=== PATIENT | female | born 1990 | race Caucasian/White ===

== ENCOUNTER 2020-05-30 18:04 | Emergency (ER) | payer MEDICARE, SELFPAY ==
[2020-05-30 18:15] VITALS: BP 134/75; PULSE 103; RESP 14; TEMP 37.3; O2SAT 99
--- NOTE | 2020-05-30 19:06 | ED.GENADULT ---
HPI - General Adult General Chief complaint: Upper Respiratory Infection Stated complaint: sore throat Time Seen by Provider: 05/30/20 19:06 Source: patient and RN notes reviewed Mode of arrival: ambulatory Limitations: no limitations History of Present Illness HPI narrative: 30-year-old female presents with complaints of dry cough and sore throat for 1 day. No treatment. Diamond says she started having symptoms today at work once she found out a co-worker was diagnosis with Strep throat. No high fevers, drooling, neck or throat swelling. Pain is bilateral. Hurts to swallow. Exacerbation factors consist dry coughing. No rhinorrhea or nasal congestion. No voice change. No nausea, vomiting, or abdominal pain. Tolerating liquids well. Denies chills, dyspnea, difficulty swallowing, jaw pain, dental pain, facial pain, foreign body sensation, and rash. LMP, unknow on Depo-Provera for years per Diamond. Remains active. The patient reports she have not been diagnosed with COVID-19. The patient reports she is not waiting for the results of a COVID-19 lab test. The patient reports she do not have fever, chills, weakness, fatigue, myalgia, or facial swelling. The patient reports she do not have a new or worsening cough or shortness of breath. Denies chest pain. The patient reports she do not have any rhinorrhea, congestion, and diarrhea. Denies recent traveling. Denies concerns for COVID-19 or exposures been home with limited outdoor exposure except for essential household needs, work, and return home. At this time, patient is not suspected of having COVID-19. Some parts of this dictation were generated by voice recognition software and may contain typographical and/or grammatical inaccuracies. Related Data Home Medications Medication Instructions Recorded Confirmed fluoxetine 80 mg PO DAILY 05/30/20 05/30/20 lamotrigine 25 mg PO DAILY 05/30/20 05/30/20 lithium carbonate 450 mg PO BID 05/30/20 05/30/20 lurasidone [Latuda] 40 mg PO DAILY 05/30/20 05/30/20 medroxyprogesterone 150 mg IM [id number] 05/30/20 05/30/20 naltrexone 50 mg PO DAILY 05/30/20 05/30/20 Allergies Allergy/AdvReac Type Severity Reaction Status Date / Time No Known Allergies Allergy Verified 05/30/20 18:26 Review of Systems Review of Systems: Narrative: CONSTITUTIONAL: Denies fever, chills, sweats. EYES: Denies visual changes, redness, discharge. ENT: Denies rhinorrhea, otalgia, congestion. Complains of sore throat. CARDIOVASCULAR: Denies chest pain, palpitations, edema. RESPIRATORY: Denies dyspnea, wheezing. Complains of dry cough. GASTROINTESTINAL: Denies abdominal pain, nausea, vomiting, diarrhea. GENITOURINARY: Denies dysuria, hematuria, abnormal discharge. SKIN: Denies rash or itching. MUSCULOSKELETAL: Denies acute back pain, joint pain, or myalgia. NEUROLOGIC: Denies numbness or focal weakness. PSYCHIATRIC: Denies anxiety or depression. All systems reviewed & are unremarkable except as noted in HPI and below. [facility] Past Medical History Medical History (Updated 05/31/20 @ 00:00 by Ginny Daemon) Anxiety Borderline personality disorder Depression Tourette syndrome Wrist fracture, left X3 Surgical History Surgical History (Updated 05/30/20 @ 19:11 by EDMOND Bishop) History of cholecystectomy Family History Family History (Updated 05/30/20 @ 19:33 by EDMOND Bishop) Father Heart disease Mother Seizures Other Diabetes mellitus Family history of malignant neoplasm Social History Social History (Updated 05/30/20 @ 19:32 by EDMOND Bishop) Smoking status: Never smoker Second hand tobacco smoke exposure: No Alcohol intake: current Substance use: never Gender identity (if verbalized by the patient): Female Comments At time of signature, agree with nurse past medical, surgical, social, and family history. There is no relevant family history pertinent to the presenting complaint.
== END 2020-05-30 19:32 | disposition home or self-care (01) ==
PROVIDERS: Emergency Provider Nurse Practitioner Family
DX: J02.9 Acute pharyngitis, unspecified (principal); F95.2 Tourette's disorder; F32.9 Major depressive disorder, single episode, unspecified; F41.9 Anxiety disorder, unspecified
CPT/HCPCS: 87081; 87804; 87880; 99213; G0463

== ENCOUNTER 2020-09-19 18:20 | Emergency (ER) | payer MEDICARE, SELFPAY ==
[2020-09-19 18:27] VITALS: BP 134/93; PULSE 104; RESP 16; TEMP 36.4; O2SAT 100
--- NOTE | 2020-09-19 18:31 | ED.URI ---
HPI - URI/Sore Throat General Chief Complaint: Upper Respiratory Infection Stated Complaint: strep test Time Seen by Provider: 09/19/20 18:31 Source: patient and RN notes reviewed History of Present Illness HPI Narrative: Patient is a 30-year-old female who presents the urgent care with complaints of a sore throat that started today. Patient states that she was at work and the sore throat progressed. States that she had a temperature of 99 Fahrenheit. Denies of any nausea, vomiting, abdominal pain, headache. Denies of any known exposure to strep or flu. 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 Patient has not used any meds [id number] for her symptoms. No other acute complaints. No acute distress noted. Patient aware of the plan of care. Some parts of this dictation were generated by voice recognition software and may contain typographical and/or grammatical inaccuracies. Related Data Home Medications Medication Instructions Recorded Confirmed fluoxetine 80 mg PO DAILY 05/30/20 05/30/20 lamotrigine 25 mg PO DAILY 05/30/20 05/30/20 lithium carbonate 450 mg PO BID 05/30/20 05/30/20 lurasidone [Latuda] 40 mg PO DAILY 05/30/20 05/30/20 medroxyprogesterone 150 mg IM [id number] 05/30/20 05/30/20 naltrexone 50 mg PO DAILY 05/30/20 05/30/20 Allergies Allergy/AdvReac Type Severity Reaction Status Date / Time No Known Allergies Allergy Verified 09/19/20 18:39 Review of Systems Review of Systems: Narrative: CONSTITUTIONAL: Denies fever, chills, or sweats. EYES: Denies visual changes, redness, or discharge. ENT: Reports of sore throat and slight rhinorrhea CARDIOVASCULAR: Denies chest pain, palpitations, or edema. RESPIRATORY: Denies cough or dyspnea. GASTROINTESTINAL: Denies abdominal pain, nausea, vomiting, or diarrhea. GENITOURINARY: Denies dysuria or hematuria. SKIN: Denies rash or itching. MUSCULOSKELETAL: Denies back pain, joint pain, or myalgia. NEUROLOGIC: Denies headache, numbness, or weakness. All other systems reviewed are negative, except as documented in HPI. [facility] Past Medical History Medical History (Updated 09/19/20 @ 18:47 by EDMOND Calle) Anxiety Borderline personality disorder Depression Tourette syndrome Wrist fracture, left X3 Surgical History Surgical History (Updated 05/30/20 @ 19:11 by EDMOND Bishop) History of cholecystectomy Family History Family History (Updated 05/30/20 @ 19:33 by EDMOND Bishop) Father Heart disease Mother Seizures Other Diabetes mellitus Family history of malignant neoplasm Social History Social History (Updated 05/30/20 @ 19:32 by EDMOND Bishop) Smoking status: Never smoker Second hand tobacco smoke exposure: No Alcohol intake: current Substance use: never Gender identity (if verbalized by the patient): Female Comments At the time of my signature, I reviewed and agree with the nursing past medical, surgical, social, and family history. There is no relevant family history pertinent to the patient complaint. Exam Narrative: Exam Narrative: GENERAL: This is a well-nourished, well-developed patient, in no apparent distress. HEAD: normocephalic, atraumatic. EYES: PERRL. Sclera clear/white. Vision is grossly intact. EARS: External ears normal, auditory canals clear and without drainage, TMs normal without perforation. Hearing grossly intact. NOSE: External nose normal with no obvious nasal discharge, nares without redness, no rhinorrhea. THROAT: Mucous membranes moist, moderate erythema noted to posterior oropharynx without exudate or ulceration. NECK: Neck supple CARDIOVASCULAR: Regular rate and rhythm without murmurs, gallops, or rubs. RESPIRATORY: Clear to auscultation. Breath sounds equal bilaterally. No wheezes, rales, or rhonchi. SKIN: warm, intact with no suspicious lesions or rash, good texture and turgor. NEURO: awake, alert,
== END 2020-09-19 18:50 | disposition home or self-care (01) ==
PROVIDERS: Emergency Provider Nurse Practitioner Family
DX: J02.9 Acute pharyngitis, unspecified (principal); F95.2 Tourette's disorder; F41.9 Anxiety disorder, unspecified; F32.9 Major depressive disorder, single episode, unspecified
CPT/HCPCS: 87081; 87880; 99213; G0463

== ENCOUNTER 2022-09-22 12:37 | Outpatient (CLI) | payer MEDICARE, MEDICAID, SELFPAY ==
--- NOTE | ~2022-09-22 | US_ITS ---
EXAMINATION: US OB <=14 wk fetus w TV DATE: 09/22/2022 13:53 INDICATION: Assess viability and dating of during first trimester. TECHNIQUE: Real-time pelvic ultrasound utilizing both a transvaginal and transabdominal probe was pe rformed. The interpreting radiologist was not present for the study. COMPARISON: None. FINDINGS: The uterus measures 7.4 x 6.0 x 4.6 cm. There is an intrauterine gestational sac. There is a yolk sa c but no definitive pole. The mean sac diameter measures 2.0 cm, which correlates with an estim ated gestational age of 6 weeks and 6 days. The right ovary measures 3.6 x 2.6 x 2.3 cm. 1.1 cm anechoic likely corpus luteum cyst in the right ovary. The left ovary measures 2.9 x 1.9 x 1.7 cm. Vascular flow with arterial waveforms identified i n both the left and right ovaries. There is no free fluid in the pelvis. IMPRESSION: 1. Single intrauterine gestational sac with yolk sac but no definitive pole yet apparent. The a bsence of a definitive pole at a mean sac diameter of 2.0 cm raises some concern for but is not diagnostic of failed . 2. Gestational age by ultrasound based upon mean sac diameter of 6 weeks 6 day(s) +/- 4 day(s) with ultrasound estimated date of delivery (DEUCE) of 05/12/2023. Reviewed, dictated and finalized at location A. AL CONSTRUCTOR IMPRESSION: 1. Single intrauterine gestational sac with yolk sac but no definitive po le yet apparent. The absence of a definitive pole at a mean sac diameter of 2.0 cm raises some concern for but is not diagnostic of failed . 2. Gestational age by ultrasound based upon mean sac diameter of 6 weeks 6 day (s) +/- 4 day(s) with ultrasound estimated date of delivery (DEUCE) of 05/12/2023.
== END 2022-09-22 12:38 | disposition home or self-care (01) ==
PROVIDERS: Visit Provider Obstetrics & Gynecology Gynecology
DX: O36.80X0 Pregnancy with inconclusive fetal viability, not applicable or unspecified (principal); Z3A.01 Less than 8 weeks gestation of pregnancy
CPT/HCPCS: 76801; 76817

== ENCOUNTER 2022-09-24 10:04 | Outpatient (CLI) | payer MEDICARE, MEDICAID, SELFPAY | END 2022-09-24 10:05 | disposition home or self-care (01) | LOC: ANHLAB 10:05 | PROVIDERS: Visit Provider Obstetrics & Gynecology Gynecology | DX: O26.859 Spotting complicating pregnancy, unspecified trimester (principal); Z3A.00 Weeks of gestation of pregnancy not specified | CPT/HCPCS: 36415; 84702 ==

== ENCOUNTER 2022-10-06 16:23 | Emergency (ER) | payer MEDICARE, MEDICAID, SELFPAY ==
[2022-10-06 16:21] VITALS: BP 128/82; PULSE 107; RESP 30; TEMP 36.6; O2SAT 100
--- NOTE | 2022-10-06 16:30 | ECG_ITS ---
Measurements Intervals [place] Rate: 95 P: 30 AR: 148 QRS: 55 QRSD: 88 T: 9 QT: 364 QTc: 460 Interpretive Statements SINUS RHYTHM NONSPECIFIC ST AND T-WAVE ABNORMALITY NO PREVIOUS ECG AVAILABLE FOR COMPARISON Electronically Signed On 10-07-2022 15:18:55 PROFILE SAW OPERATOR by Loc Patiño M.D.
[2022-10-06 16:31] VITALS: PULSE 98
[2022-10-06 16:40] LABS: Appearance Urine Clear (Clear); Bilirubin Urine Negative (Negative); Blood Urine Negative (Negative); Color Urine Yellow (Yellow); Glucose Urine UA Negative (Negative); Ketones Urine Negative (Negative); Leukocyte Esterase Ur Negative LEU/UL (Negative); Nitrate Urine Negative (Negative); Protein Urine Negative (Negative); Urobilinogen Urine 0.2 mg/dL (<2.0); pH Urine 6.5 (5.0-9.0)
[2022-10-06 16:46] LABS: RBC Urine 0-2 /hpf (0-2); Squamous Epithelial Cell Urine Few /hpf (Few); WBC Urine 0-3 /hpf
[2022-10-06 16:47] LABS: Basophils Percent Auto 0.1 % (0.2-1.2); Eosinophils Absolute Auto 0.1 K/mm3 (0-0.3); Eosinophils Percent Auto 0.6 % (0-4.4); Hematocrit 38.4 % (37.0-47.0); Hemoglobin 12.4 g/dL (12.0-15.0); Immature Granulocyte Absolute 0.03 K/mm3 (0.00-0.031); Immature Granulocyte Percent A 0.4 % (0-0.5); Lymphocytes Absolute Auto 1.46 K/mm3 (0.9-3.2); Lymphocytes Percent Auto 17.1 % (18.3-44.2); Mean Corpuscular HGB Conc 32.3 g/dl (32-36); Mean Corpuscular Hemoglobin 29.4 pg (26-34); Mean Platelet Volume 8.5 fl (7.4-10.4); Monocytes Absolute Auto 0.4 K/mm3 (0.1-0.6); Neutrophils Absolute Auto 6.6 K/mm3 (1.3-6.7); Neutrophils Percent Auto 76.8 % (45.5-73.1); Platelet Count Result 281 k/mm3 (150-375); Red Blood Count 4.22 M/mm3 (4.2-5.4); Red Cell Distribution Width 12.6 % (11.5-14.5); White Blood Count 8.5 K/mm3 (4.5-10.0)
[2022-10-06 16:48] LABS: Add Urine Microscopic? NO
[2022-10-06 16:58] LABS: Alanine Aminotransferase 24 U/L (6-35); Albumin Level 3.9 g/dL (3.5-5.1); Alkaline Phosphatase 50 U/L (38-126); Anion Gap 9 mmol/L (8-16); Aspartate Amino Transferase 24 U/L (14-36); Bilirubin,Total 0.6 mg/dL (0.2-1.3); Blood Urea Nitrogen 7 mg/dL (7-17); Calcium 8.9 mg/dL (8.4-10.2); Carbon Dioxide 20 mmol/L (22-30); Chloride 107 mmol/L (98-107); Estimated CRCL calculation 128 ml/min; Estimated Glomerular Filt Rate > 60; Glucose 93 mg/dL (65-110); Potassium 3.6 mmol/L (3.4-5.0); Sodium 136 mmol/L (137-145)
[2022-10-06 17:19] VITALS: BP 146/95; PULSE 114; RESP 24; O2SAT 97
--- NOTE | 2022-10-06 17:26 | ED.SEIZURE ---
HPI - Seizure General Chief Complaint: Seizure Stated Complaint: SEIZURE Time Seen by Provider: 10/06/22 17:19 History of Present Illness HPI Narrative: Pt went to break room at [facility] to take a brief nap and woke up in an ambulance and patient does not remember what happened. Pt has history of pseudoseizures being treated by psychiatrist at [facility]. Pt also on lithium for manic depression which has been well controlled until she became and had dosage reduced. Pt says she has been under a lot of stress and this precipitates the pseudoseizures. Related Data Home Medications Medication Instructions Recorded Confirmed fluoxetine 40 mg capsule 80 mg PO DAILY 05/30/20 09/19/20 lamotrigine 25 mg tablet 25 mg PO DAILY 05/30/20 09/19/20 lithium carbonate 450 mg 450 mg PO BID 05/30/20 09/19/20 tablet,extended release lurasidone 40 mg tablet (Latuda) 40 mg PO DAILY 05/30/20 09/19/20 medroxyprogesterone 150 mg/mL 150 mg IM [id number] 05/30/20 09/19/20 intramuscular syringe naltrexone 50 mg tablet 50 mg PO DAILY 05/30/20 09/19/20 Allergies Allergy/AdvReac Type Severity Reaction Status Date / Time No Known Allergies Allergy Verified 10/06/22 16:30 Review of Systems Review of Systems: All systems reviewed & are unremarkable except as noted in HPI and below PMFSH Past Medical History Medical History (Updated 10/06/22 @ 17:36 by Selena Paul III, DO) Anxiety Borderline personality disorder Depression Tourette syndrome Wrist fracture, left X3 Surgical History Surgical History (Updated 05/30/20 @ 19:11 by EDMOND Bishop) History of cholecystectomy Family History Family History (Updated 05/30/20 @ 19:33 by EDMOND Bishop) Father Heart disease Mother Seizures Other Diabetes mellitus Family history of malignant neoplasm Social History Social History (Updated 05/30/20 @ 19:32 by EDMOND Bishop) Smoking status: Never smoker Second hand tobacco smoke exposure: No Alcohol intake: current Substance use: never Gender identity (if verbalized by the patient): Female Exam Const: General: healthy appearing Nutritional Appearance: well nourished Orientation/consciousness: patient oriented x3 Limitations: no limitations HENMT: Head: normal to inspection Throat: posterior oropharynx normal Eyes: Conjunctivae: conjunctivae normal EOM: EOMs intact bilaterally Neck: Neck: normal visual inspection Chest: Chest palpation & inspection: normal inspection of the chest Resp: Effort & Inspection: normal respiratory effort Auscultation: clear to auscultation bilaterally Cardio: Rate: regular rate Rhythm: regular rhythm GI: Auscultation: normal bowel sounds Skin: General skin exam: normal color Rashes: no rashes Neuro: General: patient oriented x3, moves all extremities, no meningeal signs, no focal motor deficits and CN's II-XI intact bilaterally Cranial nerves: Yes Nystagmus not present Speech: normal speech Extrem: General: normal to inspection and no clubbing, cyanosis or edema Psych: Appearance: grossly normal Mental Status: mental status grossly normal Affect: normal affect Attitude: cooperative Course Vital Signs Vital signs: Vital Signs Temperature 97.8 F 10/06/22 16:21 Pulse Rate 107 H 10/06/22 16:21 Respiratory Rate 30 H 10/06/22 16:21 Blood Pressure 128/82 10/06/22 16:21 Pulse Oximetry 100 10/06/22 16:21 Oxygen Delivery Room Air 10/06/22 16:21 Temperature 97.8 F 10/06/22 16:21 Pulse Rate 114 H 10/06/22 17:19 Respiratory Rate 24 H 10/06/22 17:19 Blood Pressure 146/95 H 10/06/22 17:19 Pulse Oximetry 97 10/06/22 17:19 Oxygen Delivery Room Air 10/06/22 16:21 MDM - Seizure Lab Data Attestation: I reviewed the patient's lab results. 10/06/22 16:42 10/06/22 16:42 Labs: Lab Results 10/06/22 10/06/22 10/06/22 Range/Units 16:34 16:42 16:42 WBC 8.5
[2022-10-06 17:39] VITALS: BP 116/76; PULSE 87; RESP 22; O2SAT 100
== END 2022-10-06 17:55 | disposition home or self-care (01) ==
PROVIDERS: Emergency Medicine; Emergency Provider Emergency Medicine
DX: R56.9 Unspecified convulsions (principal); F41.9 Anxiety disorder, unspecified; F31.9 Bipolar disorder, unspecified; F60.3 Borderline personality disorder; F95.2 Tourette's disorder; R94.31 Abnormal electrocardiogram [ECG] [EKG]
CPT/HCPCS: 36415; 80053; 81003; 85025; 93005; 99283

== ENCOUNTER 2022-10-20 13:55 | Outpatient (CLI) | payer MEDICARE, MEDICAID, SELFPAY ==
--- NOTE | ~2022-10-20 | US_ITS ---
Pelvic ultrasound. Clinical History: First trimester , uncertain dates Technique: Realtime transabdominal scanning of the pelvis was performed. Findings: The uterus is anteverted, and contains an intrauterine gestation. [place]-rump length of 3 cm corresponds to an estimated gestational age of 9 weeks 6 days. heart rate is 159 bpm. Neither ovary visualized. No adnexal mass seen. There is no evidence of free fluid in the cul de sac. Impression: Live intrauterine gestation with estimated gestational age of 9 weeks 6 days. heart rate is 159 bpm. Reviewed, dictated and finalized at location M. T SUPERVISOR Impression: Live intrauterine gestation with estimated gestational age of 9 weeks 6 days. F etal heart rate is 159 bpm.
== END 2022-10-20 13:56 | disposition home or self-care (01) ==
PROVIDERS: Visit Provider Obstetrics & Gynecology Gynecology
DX: Z36.87 Encounter for antenatal screening for uncertain dates (principal); Z3A.09 9 weeks gestation of pregnancy
CPT/HCPCS: 76801

== ENCOUNTER 2024-02-21 01:07 | Emergency (ER) | payer OTHER, BC, SELFPAY ==
[2024-02-21 01:03] VITALS: BP 120/71; PULSE 115; RESP 20; O2SAT 100
[2024-02-21 01:12] VITALS: O2SAT 99
--- NOTE | 2024-02-21 01:14 | ECG_ITS ---
SEE SCANNED COPY FOR CONFIRMED REPORT MTDD
--- NOTE | 2024-02-21 01:18 | ED.GENADULT ---
HPI - General Adult General Chief complaint: Seizure Stated complaint: seizure Source: patient Mode of arrival: ambulatory Limitations: no limitations History of Present Illness HPI narrative: This is a 33-year-old female with PMH of borderline personality disorder, anxiety, pseudoseizures who presents to the ED via EMS for chief complaint of seizure-like activity just prior to arrival. Patient reports that she has been on a women's retreat and was staying at a hotel. Reports that she had to climb 4 sets of stairs to get back up to the room. Reports she took a shower and then lay down because she was feeling very fatigued. After that she is not sure what happened. States that she came to in the EMS rig EN route to the ED. patient is currently A&O x4 and reports her only current complaint is fatigue/being tired. She does note that this is happened in the past and has been told she has had pseudoseizures. No formal history of epilepsy. States she has appointment with neurology in April. Denies fever, chills, neck pain, chest pain, shortness of breath, abdominal pain, nausea, vomiting, numbness, weakness. Reports she is on 5 different psych meds and is taking lithium for borderline personality disorder. Related Data Home Medications Medication Instructions Recorded Confirmed fluoxetine 40 mg capsule 80 mg PO DAILY 05/30/20 09/19/20 lamotrigine 25 mg tablet 25 mg PO DAILY 05/30/20 09/19/20 lithium carbonate 450 mg 450 mg PO BID 05/30/20 09/19/20 tablet,extended release lurasidone 40 mg tablet (Latuda) 40 mg PO DAILY 05/30/20 09/19/20 medroxyprogesterone 150 mg/mL 150 mg IM [id number] 05/30/20 09/19/20 intramuscular syringe naltrexone 50 mg tablet 50 mg PO DAILY 05/30/20 09/19/20 Allergies Allergy/AdvReac Type Severity Reaction Status Date / Time No Known Allergies Allergy Verified 02/21/24 01:20 Review of Systems Review of Systems: All systems as dictated in HPI [facility] Past Medical History Medical History (Updated 02/21/24 @ 02:00 by Obie Tello PA-C) Anxiety Borderline personality disorder Depression Tourette syndrome Wrist fracture, left X3 Surgical History Surgical History (Updated 05/30/20 @ 19:11 by EDMOND Bishop) History of cholecystectomy Family History Family History (Updated 05/30/20 @ 19:33 by EDMOND Bishop) Father Heart disease Mother Seizures Other Diabetes mellitus Family history of malignant neoplasm Social History Social History (Updated 05/30/20 @ 19:32 by EDMOND Bishop) Smoking status: Never smoker Second hand tobacco smoke exposure: No Alcohol intake: current Substance use: never Living arrangements: with family Occupation/Education: occupation Gender identity (if verbalized by the patient): Female Exam Narrative: GENERAL: Well-appearing, well-nourished, and in no acute distress. Polite and conversational HEAD: Normocephalic, atraumatic. EYES: PERRLA and EOMI. ENT: Nares clear, no rhinorrhea or epistaxis. Mucous membranes moist. Oropharynx without tonsillar hypertrophy exudate or other lesions. No tongue lacerations. NECK: Supple. No adenopathy or masses. No meningeal signs CHEST: No respiratory distress. Clear to auscultation. No wheezes rales or rhonchi HEART: Regular rate and rhythm. No murmur heard. Normal peripheral pulses. ABDOMEN: Soft, nontender, nondistended, normal active bowel sounds. MSK: Normal range of motion. No edema. SKIN: Warm, dry, no rash. NEURO: Alert and oriented x4. No focal deficits. No evidence of postictal phase. Normal speech. Cranial nerves 2-12 intact. PSYCH: Slightly anxious. Normal affect. No SI or HI. No hallucinations Course Course Emergency Course: Re-evaluation 0200: Patient feeling much improved with Ativan. Lab work is showing some lactic acidosis, consistent with repeated convulsive activity. Lactate only a 3.5, would expect this to be much higher
[2024-02-21] MEDS: LORazepam INJ (*CRX) 2 MG/ML VIAL 0.5 MG IV PUSH (01:19)
[2024-02-21 01:20] VITALS: PULSE 115
[2024-02-21 01:42] LABS: Basophils Percent Auto 0.2 % (0.2-1.2); Eosinophils Absolute Auto 0.1 K/mm3 (0-0.3); Eosinophils Percent Auto 0.8 % (0-4.4); Hematocrit 40.2 % (37.0-47.0); Hemoglobin 12.6 g/dL (12.0-15.0); Immature Granulocyte Absolute 0.02 K/mm3 (0.00-0.031); Immature Granulocyte Percent A 0.2 % (0-0.5); Lymphocytes Absolute Auto 1.39 K/mm3 (0.9-3.2); Lymphocytes Percent Auto 15.3 % (18.3-44.2); Mean Corpuscular HGB Conc 31.3 g/dl (32-36); Mean Corpuscular Hemoglobin 27.3 pg (26-34); Mean Corpuscular Volume 87.2 fl (80-100); Mean Platelet Volume 8.8 fl (7.4-10.4); Monocytes Absolute Auto 0.4 K/mm3 (0.1-0.6); Monocytes Percent Auto 4.6 % (2.6-8.5); Neutrophils Absolute Auto 7.2 K/mm3 (1.3-6.7); Neutrophils Percent Auto 78.9 % (45.5-73.1); Platelet Count Result 336 k/mm3 (150-375); Red Blood Count 4.61 M/mm3 (4.2-5.4); Red Cell Distribution Width 14.3 % (11.5-14.5); White Blood Count 9.1 K/mm3 (4.5-10.0)
[2024-02-21 01:53] LABS: Lactic Acid Reflex 3.5 mmol/L (0.7-2.0)
[2024-02-21 01:54] LABS: Alanine Aminotransferase 22 U/L (6-35); Albumin Level 4.2 g/dL (3.5-5.1); Alkaline Phosphatase 58 U/L (38-126); Anion Gap 13 mmol/L (4-12); Aspartate Amino Transferase 21 U/L (14-36); Bilirubin,Total 0.6 mg/dL (0.2-1.3); Blood Urea Nitrogen 13 mg/dL (7-17); Calcium 9.6 mg/dL (8.4-10.2); Carbon Dioxide 13 mmol/L (22-30); Chloride 114 mmol/L (98-107); Creatine Kinase 77 U/L (30-135); Estimated CRCL calculation 76 ml/min; Estimated Glomerular Filt Rate 52; Glucose 109 mg/dL (65-110); Potassium 3.7 mmol/L (3.4-5.0); Sodium 140 mmol/L (137-145)
[2024-02-21] MEDS: SODIUM CHLORIDE 0.9% IV 1,000 ML 999 ML IV CONT (02:20)
[2024-02-21 03:19] VITALS: BP 120/62; PULSE 99; RESP 14; O2SAT 100
[2024-02-21 04:39] LABS: Reflex Lactic Acid Yes or No Add Lactic
== END 2024-02-21 03:21 | disposition home or self-care (01) ==
PROVIDERS: Emergency Provider Physician Assistant
DX: R56.9 Unspecified convulsions (principal); F60.3 Borderline personality disorder; F41.9 Anxiety disorder, unspecified; F32.A Depression, unspecified; F95.2 Tourette's disorder; Z90.49 Acquired absence of other specified parts of digestive tract; R00.0 Tachycardia, unspecified; R94.31 Abnormal electrocardiogram [ECG] [EKG]
CPT/HCPCS: 36415; 80053; 82550; 83605; 85025; 93005; 96361; 96374; 99284; J2060; J7030

== ENCOUNTER 2024-06-29 19:18 | Emergency (ER) | payer OTHER, SELFPAY ==
[2024-06-29] VITALS (13 sets, daily range): BP systolic 102–120; BP diastolic 74–87; PULSE 85–109; RESP 14–25; TEMP 36.9; O2SAT 98–100
--- NOTE | 2024-06-29 19:30 | ECG_ITS ---
Test Date: 2024-06-29 19:33:18 Measurements Intervals [place] Rate: 107 P: 21 IL: 155 QRS: 61 QRSD: 89 T: 30 QT: 327 QTc: 436 Interpretive Statements BASELINE ARTIFACT PRESENT, REDUCED QUALITY ECG SINUS TACHYCARDIA NONSPECIFIC T-WAVE ABNORMALITY ABNORMAL RHYTHM ECG No previous ECG available for comparison Electronically Signed On 06-30-2024 13:15:51 CDT by Alex Diego M.D.
[2024-06-29] MEDS: SODIUM CHLORIDE 0.9% IV 1,000 ML 999 ML IV CONT (20:00)
[2024-06-29 20:02] LABS: BEDSIDEPREGUCG Negative
[2024-06-29 20:05] LABS: Basophils Percent Auto 0.5 % (0.2-1.2); Eosinophils Absolute Auto 0.2 K/mm3 (0-0.3); Eosinophils Percent Auto 1.8 % (0-4.4); Hematocrit 40.5 % (37.0-47.0); Hemoglobin 12.8 g/dL (12.0-15.0); Immature Granulocyte Absolute 0.04 K/mm3 (0.00-0.031); Immature Granulocyte Percent A 0.5 % (0-0.5); Lymphocytes Absolute Auto 2.37 K/mm3 (0.9-3.2); Lymphocytes Percent Auto 27.7 % (18.3-44.2); Mean Corpuscular HGB Conc 31.6 g/dl (32-36); Mean Corpuscular Volume 85.4 fl (80-100); Monocytes Absolute Auto 0.6 K/mm3 (0.1-0.6); Neutrophils Absolute Auto 5.4 K/mm3 (1.3-6.7); Neutrophils Percent Auto 62.5 % (45.5-73.1); Platelet Count Result 343 k/mm3 (150-375); Red Blood Count 4.74 M/mm3 (4.2-5.4); Red Cell Distribution Width 13.5 % (11.5-14.5); White Blood Count 8.6 K/mm3 (4.5-10.0)
--- NOTE | 2024-06-29 20:08 | ED.GENADULT ---
HPI - General Adult General Chief complaint: Seizure Stated complaint: possible seizure Time Seen by Provider: 06/29/24 19:43 History of Present Illness HPI narrative: Patient is a 34-year-old female who presents the emergency department this evening from [facility] due to a witnessed seizure around 6:30 p.m. this evening. Patient admits to history of stress-induced seizures and states that she is currently on lamotrigine, however, she does not take it for seizure disorder she takes it for mood control. Correction officers report that patient was brought in for further evaluation because they were having a difficult time waking her up 10 minutes after her seizure episode. Patient is currently are alert and oriented to person, place, time and situation and complains of mild headache and some dizziness. Patient states that she has had full neurological workup when she 1st started to have the stress induced seizures including CT scans MRI and EEG. She denies any chest pain or shortness of breath, any nausea or vomiting. No additional symptoms or concerns at this time. Related Data Home Medications Medication Instructions Recorded Confirmed fluoxetine 40 mg capsule 80 mg PO DAILY 05/30/20 09/19/20 lamotrigine 25 mg tablet 25 mg PO DAILY 05/30/20 09/19/20 lithium carbonate 450 mg 450 mg PO BID 05/30/20 09/19/20 tablet,extended release lurasidone 40 mg tablet (Latuda) 40 mg PO DAILY 05/30/20 09/19/20 medroxyprogesterone 150 mg/mL 150 mg IM [id number] 05/30/20 09/19/20 intramuscular syringe naltrexone 50 mg tablet 50 mg PO DAILY 05/30/20 09/19/20 Allergies Allergy/AdvReac Type Severity Reaction Status Date / Time No Known Allergies Allergy Verified 02/21/24 01:20 Review of Systems Review of Systems: All systems are reviewed and are negative unless stated otherwise in the HPI. [facility] Past Medical History Medical History Anxiety Borderline personality disorder Depression Tourette syndrome Wrist fracture, left X3 Surgical History Surgical History History of cholecystectomy Family History Family History Father Heart disease Mother Seizures Other Diabetes mellitus Family history of malignant neoplasm Social History Social History Smoking status: Never smoker Second hand tobacco smoke exposure: No Alcohol intake: current Substance use: never Living arrangements: with family Occupation/Education: occupation Gender identity (if verbalized by the patient): Female Exam Narrative: General: Alert, awake, afebrile, in no acute distress. HEENT: PERRL, no rhinorrhea, no post nasal drip, oropharynx clear. Cardiovascular: Regular rate and rhythm, no murmurs, rubs or gallops, no peripheral edema. Respiratory: Clear to auscultation bilaterally, no tachypnea, no wheezing, no rhonchi, no rubs, no respiratory distress. Abdomen: Soft, nontender, nondistended, no rebound, no guarding, no peritoneal signs. Musculoskeletal: No joint swelling or deformity, normal muscle tone. Skin: No rashes or petechia, no signs of infection. Neurological: Alert and oriented to person, place, and time. Follows all commands. No focal deficits, speech is clear and fluent. Course Vital Signs Vital signs: Vital Signs Pulse Rate 108 H 06/29/24 19:23 Respiratory Rate 14 06/29/24 19:23 Blood Pressure 114/75 06/29/24 19:23 Pulse Oximetry 100 06/29/24 19:23 Oxygen Delivery Room Air 06/29/24 19:23 Temperature 98.4 F 06/29/24 22:04 Pulse Rate 85 06/29/24 22:04 Respiratory Rate 14 06/29/24 22:04 Blood Pressure 120/87 06/29/24 22:04 Pulse Oximetry 100 06/29/24 22:04 Oxygen Delivery Room Air 06/29/24 20:31 Medical Decision Making MDM Narrat
[2024-06-29 20:18] LABS: Alanine Aminotransferase 46 U/L (6-35); Albumin Level 4.1 g/dL (3.5-5.1); Alkaline Phosphatase 67 U/L (38-126); Anion Gap 11 mmol/L (4-12); Aspartate Amino Transferase 55 U/L (14-36); Bilirubin,Total 0.7 mg/dL (0.2-1.3); Blood Urea Nitrogen 15 mg/dL (7-17); Calcium 9.5 mg/dL (8.4-10.2); Carbon Dioxide 23 mmol/L (22-30); Chloride 103 mmol/L (98-107); Estimated CRCL calculation 103 ml/min; Estimated Glomerular Filt Rate > 60; Glucose 86 mg/dL (65-110); Potassium 4.1 mmol/L (3.4-5.0); Sodium 137 mmol/L (137-145)
[2024-06-29 22:02] LABS: Add Urine Microscopic? YES; Appearance Urine Clear (Clear); Bacteria Urine 2+ /hpf; Bilirubin Urine Negative (Negative); Blood Urine Negative (Negative); Calcium Oxalate Crystals Urine Present /hpf; Color Urine Yellow (Yellow); Glucose Urine UA Negative (Negative); Ketones Urine Trace mg/dL (Negative); Leukocyte Esterase Ur 1+ LEU/UL (Negative); Nitrate Urine Negative (Negative); Non Pathogenic Casts 0-2; Protein Urine Negative (Negative); Specific Grav Ur 1.028 (1.001-1.035); Squamous Epithelial Cell Urine Moderate /hpf (Few); WBC Urine 21-50 /hpf (0-3); pH Urine 5.5 (5.0-9.0)
== END 2024-06-29 23:06 | disposition home or self-care (01) ==
PROVIDERS: Emergency Provider Emergency Medicine; PCP Nurse Practitioner
DX: R56.9 Unspecified convulsions (principal); N39.0 Urinary tract infection, site not specified; F41.9 Anxiety disorder, unspecified; F60.3 Borderline personality disorder; F32.A Depression, unspecified; F95.2 Tourette's disorder; Z90.49 Acquired absence of other specified parts of digestive tract; R94.31 Abnormal electrocardiogram [ECG] [EKG]; R00.0 Tachycardia, unspecified
CPT/HCPCS: 36415; 80053; 81001; 81025; 85025; 87086; 93005; 96360; 96361; 99284; J7030